=== PATIENT | female | born 1995 | race Two or more races ===

== ENCOUNTER 2019-03-11 08:56 | Emergency (ER) | payer MEDICAID ==
[~2019-03-11] VITALS: Ht 167.6 cm; Wt 70.3 kg
[2019-03-11 09:03] VITALS: BP 134/77
[2019-03-11] MEDS ORDERED: IPRATROPIUM NEB FS 0.5 MG/2.5 ML AMPUL.NEB ONE (09:13)
[2019-03-11] MEDS ORDERED: ALBUTEROL FS 2.5 MG/3 ML VIAL.NEB ONE (09:13)
[2019-03-11] MEDS ORDERED: ALBUTEROL FS 2.5 MG/3 ML VIAL.NEB NEB ONE (09:30)
[2019-03-11] MEDS ORDERED: IPRATROPIUM NEB FS 0.5 MG/2.5 ML AMPUL.NEB NEB ONE (09:30)
== END 2019-03-11 09:52 | disposition home or self-care (01) ==
LOC: ER 09:04
DX: J45.909 Unspecified asthma, uncomplicated (principal)